=== PATIENT | female | born 1990 | race Caucasian/White ===

== ENCOUNTER 2022-04-26 14:33 | Emergency (ER) | payer OTHER ==
[~2022-04-26] VITALS: Ht 149.9 cm; Wt 57.0 kg
[2022-04-26 15:15] VITALS: BP 132/79
[2022-04-26] MEDS ORDERED: HYDROcodone-ACET 5/325MG TAB PO ONE (15:45)
== END 2022-04-26 16:43 | disposition home or self-care (01) ==
LOC: ER 14:33 → EEVIPCON 14:33 → ER 16:43
DX: S42.301A Unspecified fracture of shaft of humerus, right arm, initial encounter for closed fracture (principal); W18.00XA Striking against unspecified object with subsequent fall, initial encounter; Y93.89 Activity, other specified; Y92.89 Other specified places as the place of occurrence of the external cause; Y99.8 Other external cause status
CPT/HCPCS: 73060